=== PATIENT | male | born 1955 | race Caucasian/White ===

== ENCOUNTER 2017-07-15 11:39 | Emergency (ER) | payer MEDICAID, OTHER ==
[~2017-07-15] VITALS: Ht 165.1 cm; Wt 74.8 kg
--- NOTE | 2017-07-15 11:51 | NUR ---
BIB [facility], FOUND WALKING ON STREET WITH ETOH NOTED ON BREATH
--- NOTE | 2017-07-15 13:02 | NUR ---
Patient is resting comfortably in bed with eyes closed. Easily aroused. VSS
--- NOTE | 2017-07-15 14:00 | NUR ---
PT PROVIDED WITH A FOOD TRAY REQUESTED.
--- NOTE | 2017-07-15 15:00 | NUR ---
Pt ambulatory with a steady gait.
--- NOTE | 2017-07-15 15:29 | NUR ---
Patient discharged to home in stable condition. Written and verbal after care instructions given. Patient verbalizes understanding of instruction.
[2017-07-15 15:32] VITALS: BP 128/71
== END 2017-07-15 15:33 | disposition home or self-care (01) ==
LOC: ER 11:41
DX: F10.129 Alcohol abuse with intoxication, unspecified (principal)
CPT/HCPCS: A4606; Z7610